=== PATIENT | male | born 1995 | race Caucasian/White ===

== ENCOUNTER 2018-04-10 00:44 | Emergency (ER) | payer SELFPAY ==
[2018-04-10 00:46] VITALS: BP 150/101; PULSE 102; RESP 15; TEMP 36.8; O2SAT 99; BMI 40.6
[2018-04-10 01:49] LABS: Absolute Lymphocyte Count 1.53 X10^3/ul (0.83-4.51); Absolute Neutrophil Count 7.3 X10^3/uL (2.0-7.7); Basophil# 0.02 X10^3/uL; Basophil% 0.2 % (0-1); Eosinophil# 0.03 X10^3/uL; Eosinophils% 0.3 % (0-5); Hemoglobin 16.4 g/dl (13.0-16.5); Lymphocyte # 1.53 X10^3/ul (4.0); Lymphocyte % 15.7 % (19-41); Mean Corp Hgb Conc 36.4 g/gl (32-36); Mean Corpuscular Hgb 31.9 pg (27.0-32.0); Mean Corpuscular Volume 87.5 fL (80-94); Mean Platelet Vol. 10.3 fl (6.2-12.0); Monocyte# 0.87 X10^3/uL; Neutrophil # 7.26 X10^3/uL (2.7-7.7); Neutrophil % 74.7 % (47-70); POSITIVE COUNT NO; POSITIVE DIFFERENTIAL NO; POSITIVE MORPHOLOGY NO; Platelet Count 319 K/mm3 (150-450); RBC Distribution Width SD 41.5 fl (35.1-43.9); Red Blood Count 5.14 M/mm3 (4.6-6.2); White Blood Count 9.7 K/mm3 (4.4-11.0)
[2018-04-10 02:01] LABS: Anion Gap 7 (5-15); BUN 7 mg/dL (7-18); BUN/Creat Ratio 8.3 RATIO (10-20); Calcium,Total 8.4 mg/dL (8.5-10.1); Chloride 110 mmol/L (98-107); Creatinine, Serum 0.85 mg/dL (0.70-1.30); EST Glomerular Filtration Rate 121 mL/min (>60); Est Glom Filt Rate - Afr Amer 147 mL/min (>60); Estimated Creatinine Clearance 147.65 ml/min; Glucose 102 mg/dL (74-106); Potassium 3.5 mmol/L (3.5-5.1); Sodium Level 140 mmol/L (136-145)
[2018-04-10 02:13] LABS: Alcohol, Blood (Medical)-Serum < 3.0 mg/dL
--- NOTE | 2018-04-10 02:35 | ED.RN ---
CALLED [facility]. MARKING STITCHER STATED SHE WILL LET [facility] KNOW THAT PT NEEDS TO BE SEEN.
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
[2018-04-10 02:39] LABS: Amphetamine Urine VISTA POSITIVE (<1000 ng/mL); Barbiturate Urine VISTA NEGATIVE (< 200 ng/mL); Benzodiazepine Urine VISTA NEGATIVE (< 200 ng/mL); Cocaine Urine VISTA NEGATIVE (< 300 ng/mL); Ecstacy Urine VISTA NEGATIVE (< 500 ng/mL); Methadone Urine VISTA NEGATIVE (< 300 ng/mL); PCP Urine VISTA NEGATIVE (< 25 ng/mL); THC Urine VISTA POSITIVE (< 50 ng/mL); Vista UDS pH Range 6
--- NOTE | 2018-04-10 02:40 | ED.RN ---
[facility] CALLED. SHE IS ON HER WAY.
--- NOTE | 2018-04-10 03:41 | ED.RN ---
[facility] IS HERE TO SEE PT.
--- NOTE | 2018-04-10 03:58 | EKG12_ITS ---
Test Reason : SUICIDAL Blood Pressure : / mmHG Vent. Rate : 078 BPM Atrial Rate : 078 BPM P-R Int : 148 ms QRS Dur : 098 ms QT Int : 372 ms P-R-T Axes : 052 058 041 degrees QTc Int : 424 ms Normal sinus rhythm with sinus arrhythmia Normal ECG Confirmed by MONIE GUZMAN ([id number]), image editor ES ADKINS ([id number]) on 04/14/2018 10:12:37 AM Referred By: Confirmed By:MONIE GUZMAN
[2018-04-10 04:05] LABS: Bacteria 0 SEEN /hpf (None Seen); Mucous, Urine 0 SEEN /hpf (<or=2+); Red Blood Cells-Urine 0 SEEN /hpf (0-5); Squamous Epithelial Cells - UA 0 SEEN /hpf (0-5); White Blood Cells 0 SEEN /hpf (0-5)
[2018-04-10 04:06] LABS: Color, Urine Yellow (Yellow); Glucose, Dipstick Normal (Normal); Ketone-Dipstick Negative (Negative); Leukocyte Esterase-Dipstick Negative /ul (Negative); Nitrite-Dipstick Negative (Negative); Occult Blood-Urine Negative /ul (Negative); Protein-Dipstick Negative (Negative); Urine Bilirubin Dipstick Negative (Negative); Urine Clarity Clear (Clear); Urine Urobilinogen Normal (Normal)
[2018-04-10 04:15] VITALS: BP 144/84; PULSE 78; RESP 14; O2SAT 97
[2018-04-10 04:23] LABS: AST(SGOT) 12 U/L (15-37); Alanine Aminotransfer ALT/SGPT 23 U/L (16-61); Albumin, Serum 3.5 g/dL (3.2-5.0); Alkaline Phosphatase 92 U/L (45-117); Bilirubin, Direct 0.11 mg/dL (0.00-0.30); Globulin 3.5 g/dL (2.2-4.2)
[2018-04-10 06:15] VITALS: BP 129/59; PULSE 87; RESP 16; O2SAT 99
--- NOTE | 2018-04-10 07:42 | NURSING ---
[facility] CALLED FORM THE [facility] AND SAID [facility] IS REVIEWING THE PATIENTS CASE RIGHT NOW. THEY WILL LET US KNOW IF HE IS ACCEPTED.
[2018-04-10 08:02] VITALS: BP 129/78; PULSE 84; RESP 16; O2SAT 100
--- NOTE | 2018-04-10 08:40 | ED.RN ---
Father of pt expressed concern of son's pending admission to [facility] and asked if that situation could be changed. I spoke with father in room with the patient. The patient shared the events leading to his admission and pink slip. I explained to the father the benefits to following with mental health care while acknowledging his concern of the pt's future. Father asked if he could get this changed by talking with the dr and/or crisis. I explained that this is the best course of action based on the events and the father verbalizes understanding.
[2018-04-10 09:13] VITALS: BP 150/72; PULSE 81; RESP 18; O2SAT 98
[2018-04-10 10:09] VITALS: BP 134/78; PULSE 79; RESP 20; O2SAT 100
== END 2018-04-10 11:15 ==
PROVIDERS: Emergency Provider Emergency Medicine
DX: F32.9 Major depressive disorder, single episode, unspecified (principal); R45.851 Suicidal ideations; S50.812A Abrasion of left forearm, initial encounter; W45.8XXA Other foreign body or object entering through skin, initial encounter; Y93.9 Activity, unspecified; Y92.9 Unspecified place or not applicable; Y99.9 Unspecified external cause status; Z72.0 Tobacco use
CPT/HCPCS: 80048; 80076; 80307; 80320; 81001; 85025; 93005; 99284; G0480

== ENCOUNTER 2020-11-22 07:14 | Emergency (ER) | payer MEDICAID, SELFPAY ==
[2020-11-22 07:16] VITALS: BP 172/90; PULSE 112; RESP 22; TEMP 35.6; O2SAT 100; BMI 31.8
--- NOTE | 2020-11-22 07:26 | RAD_ITS ---
STUDY: X-RAY - RIGHT FOOT CLINICAL: Right foot foreign body. TECHNIQUE: 2 view(s) of the foot. COMPARISON: None. FINDINGS: Normal talus, calcaneus, and tarsal bones. Normal visualized subtalar, talonavicular, calcaneocuboid, tarsal and tarsometatarsal articulations. Normal metatarsi. Normal metatarsophalangeal joint of the great toe. Normal tibial and fibular sesamoid bones. Normal interphalangeal joint of the great toe. Normal phalanges of the great toe. Normal second through fifth metatarsophalangeal joints. Normal interphalangeal joints and phalanges of the lesser toes. There is a screw in the plantar aspect of the foot at the level of the proximal metatarsals. There is a very small superficial metallic fragment at the plantar lateral aspect of the fifth metatarsophalangeal joint. RAD/Foot 2 Views IMPRESSION: Screw in the plantar aspect of the foot. Very small superficial metallic fragment at the plantar lateral aspect of the fifth metatarsophalangeal joint. Electronically Signed: Hernan Lara MD at 7:57 EST Tel , Service support ,
--- NOTE | 2020-11-22 07:32 | ED.VIS.GEN ---
History of Present Illness Chief Complaint: Lower Extremity Injury Informant: Patient Onset: Today Current Severity: Moderate Maximum Severity: Moderate Narrative: She presents with a screw embedded into the bottom of his right foot. Patient states that he was repairing a door earlier this morning. He had screws laying on the steps and when he came down the steps stepped on them. One screw went through the bottom of his slipper and into his foot. He is unsure of his last tetanus update. - Past Medical History (1) Asthma Status: Chronic Past Medical History - Allergies and Home Meds Allergies/Adverse Reactions: Allergies ceftriaxone sodium [From Rocephin] Allergy (Verified 11/22/20 07:16) Rash Primary Care Physician: Care Physician,No Primary [Primary Care Provider] - Smoking Status: Current some day smoker Review of Systems General: Denies: Chills, Fever Eyes: Denies: Visual changes - bilaterally ENT: Denies: Bilateral ear pain Cardiovascular: Denies: Chest pain Respiratory: Denies: Dyspnea, Cough Gastrointestinal: Denies: Abdominal pain Musculoskeletal: Reports: Extremity Pain Skin: Reports: Wounds Neurological: Denies: Weakness Hematologic: Denies: Easy bruising, Easy bleeding Allergy: Denies: Uticaria Physical Exam Vital Signs/Narrative: Vital Signs Temp Pulse Resp BP Pulse Ox 11/22/20 07:16 96.1 F L 112 H 22 H 172/90 H 100 Inital Vital Signs reviewed: Yes General: Well nourished, Well developed Head: Normocephalic ENT: Moist mucous membranes Neck: Supple Cardiovascular: Regular rate, Regular rhythm Respiratory: No distress, CTA bilaterally Abdomen: Soft, Nontender Extremities: - - Screw through the plantar surface of the patient's right foot. Slipper is still in place and cut away at the side for visualization. Neurological: Alert, Oriented x3 Psychological: - - Anxious Diagnostic/Tx/Re-eval Impressions Foot X-Ray 11/22/20 07:26 IMPRESSION: Screw in the plantar aspect of the foot. Very small superficial metallic fragment at the plantar lateral aspect of the fifth metatarsophalangeal joint. Electronically Signed: Hernan Lara MD at 7:57 EST Tel , Service support , 11/22/20 07:26 Foot 2 Views [RAD] Stat - Medical Decision Making Left foot x-ray reviewed by myself does reveal screw into the soft tissues of the plantar left foot approximately 1 cm. 3 cc 1% lidocaine are infused locally around the base of the screw and the plantar surface of the foot. After approximately 5 minutes this was able to be removed. Foot was washed and cleansed. Patient will be placed on Cipro as well as Royalton for pain control. ED Disposition - Plan for ED Patient: Disposition: Home or Assisted Living Diagnosis: Foreign body in foot, right Instructions: ED Foreign Body, Soft Tissue (Removed) Prescriptions: Ciprofloxacin [Cipro] 500 mg PO BID #14 tab Transmission Status: Pending to [id number] Hydrocodone Bitart/Apap 5-325 [Royalton 5MG-325MG] 1 tablet PO Q6H PRN PRN 3 Days #10 tablet PRN Reason: Pain Transmission Status: Sent to [id number] Referrals: Zoey Anderson DPM [STAFF PHYSICIAN] - 1 Week if not improving
[2020-11-22] MEDS: Diphth,Pertuss(Acell),Tet Vac 0.5 ML Vial IM (07:48)
[2020-11-22 08:29] VITALS: BP 147/87; PULSE 91; RESP 16; O2SAT 100
[2020-11-22] MEDS: Ciprofloxacin 500 MG Tablet PO (08:29)
[2020-11-22] MEDS: HYDROcodone Bitartrate/Apap 5/325 Tablet PO (08:29)
[2020-11-22] MEDS: Lidocaine 1% (20 ml mdv) 20 ML Vial INFILT (08:30)
== END 2020-11-22 08:33 | disposition home or self-care (01) ==
PROVIDERS: Emergency Provider Emergency Medicine
DX: S91.341A Puncture wound with foreign body, right foot, initial encounter (principal); W45.8XXA Other foreign body or object entering through skin, initial encounter; W22.8XXA Striking against or struck by other objects, initial encounter; Y93.89 Activity, other specified; Y92.9 Unspecified place or not applicable; Y99.9 Unspecified external cause status; Z23 Encounter for immunization; J45.909 Unspecified asthma, uncomplicated; F17.200 Nicotine dependence, unspecified, uncomplicated; Z88.1 Allergy status to other antibiotic agents
CPT/HCPCS: 73620; 90471; 90715; 99284

== ENCOUNTER 2025-04-01 15:44 | Emergency (ER) | payer MEDICAID, SELFPAY ==
[2025-04-01 15:44] VITALS: BP 144/79; PULSE 109; RESP 16; TEMP 36.7; O2SAT 97; BMI 40.4
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
[2025-04-01 16:49] LABS: Absolute Neutrophil Count 4.3 X10^3/uL (2.0-7.7); Basophil# 0.06 X10^3/uL; Basophil% 0.8 % (0-1); Eosinophil# 0.22 X10^3/uL; Hematocrit 43.9 % (40-54); Hemoglobin 15.5 g/dL (13.0-16.5); Lymphocyte % 29.9 % (19-41); Mean Corp Hgb Conc 35.3 g/dL (32-36); Mean Corpuscular Hgb 31.4 pg (27.0-32.0); Mean Corpuscular Volume 88.9 fL (80-94); Mean Platelet Vol. 10.2 fl (6.2-12.0); Monocyte# 0.55 X10^3/uL; Monocyte% 7.5 % (0-10); NRBC Flagged by Analyzer 0 % (0-5); Neutrophil # 4.32 X10^3/uL (2.7-7.7); Neutrophil % 58.7 % (47-70); Platelet Count 283 K/mm3 (150-450); RBC Distribution Width CV 13.8 % (11.6-14.6); RBC Distribution Width SD 44.6 fl (35.1-43.9); Red Blood Count 4.94 M/mm3 (4.6-6.2); White Blood Count 7.4 K/mm3 (4.4-11.0)
[2025-04-01 17:05] LABS: Alcohol, Blood (Medical)-Serum < 10.1 mg/dL (<=10.0)
[2025-04-01 17:09] LABS: ALB/GLOB Ratio 1.1 RATIO (0.9-2.4); AST(SGOT) 125 U/L (<=37); Alanine Aminotransfer ALT/SGPT 197 U/L (<=46); Albumin, Serum 3.6 g/dL (3.5-5.0); Alkaline Phosphatase 98 U/L (40-129); Anion Gap 10 (5-15); BUN 10 mg/dL (4-19); Carbon Dioxide 20.9 mmol/L (21.0-32.0); Chloride 109 mmol/L (98-108); Creatinine, Serum 0.76 mg/dL (0.70-1.20); EST Glomerular Filtration Rate 126 (>60); Globulin 3.5 g/dL (2.2-4.2); Glucose 139 mg/dL (70-99); Potassium 3.8 mmol/L (3.3-5.1); Protein, Total 7.1 g/dL (5.9-8.4); Sodium Level 140 mmol/L (133-145); Total Bilirubin 0.52 mg/dL (0.00-1.30)
--- NOTE | 2025-04-01 17:27 | ED.RN ---
Pts S.O. was warned that they couldn't be arguing or she would have to leave. Pt was also told he would have to stop arguing on the phone or the phone would go away. Pt threatening to leave. Security and HRO at bedside.
--- NOTE | 2025-04-01 17:32 | PCA ---
FAXED EVERYTHING OVER TO [facility] @ 1732 AND CALLED THEM RIGHT BEFORE THAT
[2025-04-01 17:50] LABS: Amphetamine Urine PRESUMPTIVE POSITIVE (<1000 ng/mL); Barbiturate Urine NEGATIVE (< 200 ng/mL); Benzodiazepine Urine NEGATIVE (< 200 ng/mL); Buprenorphine Urine NEGATIVE (< 200 ng/mL); Cocaine Urine NEGATIVE (< 300 ng/mL); Fentanyl, Urine NEGATIVE; Methadone Urine NEGATIVE (< 300 ng/mL); Opiates Urine NEGATIVE (< 300 ng/mL); Oxycodone, Urine NEGATIVE (< 100 ng/mL); PCP Urine NEGATIVE (< 25 ng/mL); THC Urine PRESUMPTIVE POSITIVE (< 50 ng/mL)
--- NOTE | 2025-04-01 18:45 | ED.RN ---
pt has remained calm and cooperative. was given his cellphone. given rules od cooperation and keeping calm to have phone privledges. coopartive and calm at this time
[2025-04-01] MEDS: Ziprasidone IM 20 MG/ML VIAL IM (19:00)
--- NOTE | 2025-04-01 19:05 | ED.RN ---
pt esculating carlyiel talking to his brother on phone. pt is upset that he cant go home. cursing swearing getting aggitated adn violent attempt to deesculate with verbal cues. pt continues to esculate. refusing to surrender phone to staff or calm down. pt aggressived and screaming inappropriate words and threats. at bedside, restraints and meds ordered. and applied.
--- NOTE | 2025-04-01 19:05 | ED.RN ---
PATIENT IS ACTIVELY RESTRAINED BUT IS YELLING, THREATENING STAFF AND ATTEMPTING TO SWING AT STAFF. UNABLE TO OBTAIN VITAL SIGNS FOR RESTRAINT DOCUMENTATION DUE TO AGGRESSIVE BEHAVIOR. SAFETY MAINTAINED, SITTER AT BEDSIDE, MD AWARE. NO NEW ORDERS AT THIS TIME.
--- NOTE | 2025-04-01 23:24 | ED.RN ---
This RN spoke to Tyler at [facility] to confirm the protocol for chemical and physical restraints. Tyler informed this RN that the patient has to be out of physical restraints for at least 4 hours and no chemical restraints for at least 1 hour prior to arrival at [facility]. notified.
[2025-04-02 01:30] VITALS: BP 125/95; PULSE 60; RESP 18; TEMP 36.8; O2SAT 95
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
== END 2025-04-02 09:15 ==
LOC: ED 16:22
PROVIDERS: Emergency Provider Surgery; Visit Provider Surgery
DX: R45.851 Suicidal ideations (principal); F20.9 Schizophrenia, unspecified; F15.10 Other stimulant abuse, uncomplicated; F12.90 Cannabis use, unspecified, uncomplicated; R74.01 Elevation of levels of liver transaminase levels; F17.210 Nicotine dependence, cigarettes, uncomplicated
CPT/HCPCS: 80053; 80307; 82077; 85025; 93005; 99284

== ENCOUNTER 2025-04-13 02:10 | Emergency (ER) | payer MEDICAID, SELFPAY ==
[2025-04-13 02:11] VITALS: BP 114/111; PULSE 107; RESP 22; TEMP 36.8; O2SAT 99; BMI 40.8
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
--- NOTE | 2025-04-13 02:52 | CT_ITS ---
PROCEDURE: BRAIN/HEAD WITHOUT CONTRAST 04/13/2025 REASON FOR EXAM: TRAUMA TECHNIQUE: BRAIN/HEAD WITHOUT CONTRAST Coronal and Sagittal reconstruction series were provided. One or more dose reduction techniques were used (e.g., Automated exposure control, adjustment of the mA and/or kV according to patient size, use of iterative reconstruction technique. RADIATION DOSE SUMMARY: CTDlvol: 44.99 mGy DLP: 880 mGycm COMPARISON: None. FINDINGS: Normal size of the ventricles and extra-axial spaces for the patient's age. Normal white matter tracts of the supratentorial brain. Normal basal ganglia and thalami. Normal brainstem. Normal cerebellum. There is no demonstrated extra-axial, intraparenchymal, or intraventricular hemorrhage. There are no findings of an acute ischemic infarction. Normal calvarium. There is no demonstrated fracture. Normal soft tissue structures. Normal visualized paranasal sinuses. CT/Brain/Head without Contrast IMPRESSION: No CT evidence of an acute brain abnormality. Reading Location: [id number]
--- OUTSIDE RECORDS SUMMARY | 2025-04-13 02:57 | XMS RPT_ITS | CCD ---
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 VAGINALIS NAAT - UA DIP, URINE (POC) - DOXYCYCLINE MONOHYDRATE 100 MG CAPSULE - AZITHROMYCIN 500 MG TABLET - METRONIDAZOLE 500 MG TABLET Flori Velez APRN.SHADE [facility]City [facility] Emergency department Note * Angeline Ding APRN-SHADE - 01/23/2024 2:05 PM EDT Chief Complaint Patient presents with Ankle Pain Pt comes in for right ankle pain. Pt states that he was at work wrapping a pallet and that his footgot caught on the pallet causing his foot and ankle to go one way and his knee to go the other. 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 Pt works at [employer] Patient History No past medical history on file. No past surgical history on file. No family history on file. Social History Social History Narrative Not on file Allergies Allergen Reactions Rocephin [Ceftriaxone] Unknown PMH: Reviewed PSH: Reviewed Social History: Reviewed. Allergies reviewed. HPI: Marlin Ojeda is a 28 y.o. male who presents to the ED today unaccompanied with complaints of right ankle pain. He was at work, wrapping up a pallet, foot got caught in the pallet causing him to fall, twisting his ankle. Pain from the lateral ankle up to the lateral knee. No prior injury. Nothing taken for pain. Iced on arrival. No other injury. PHYSICAL EXAM: GENERAL: Vitals noted, no distress. Alert and oriented x 3. Non-toxic. HEAD: Normocephalic, atraumatic. NECK: Supple. No midline or paraspinal tenderness through full range of motion. CARDIAC: Regular rate, rhythm. No murmurs or rubs. RESPIRATORY: Lungs clear and equal bilaterally. No respiratory distress. MUSCULOSKELETAL & SKIN: Warm, dry, and intact. No rash/lesions. Localized right lower extremityperipheral edema noted at the ankle. Calf soft and nontender. Mild tenderness palpation of the proximal tibia. Full intact range of motion of the knee and the ankle. Distal cap refills less than 3 seconds. Pedal pulse 2+ and bounding. NEURO: No focal neurologic deficits, acting appropriately. Labs Reviewed - No data to display XR ankle right 3+ views Final Result No evidence for acute injury Signed by Dennis Narayanan MD XR tibia fibula right 2 views Final Result No evidence for acute injury Signed by Dennis Narayanan MD Medical Decision Making ED COURSE: This patient was seen and examined by myself independently. X-rays of the right tib-fib and ankle are noted above, interpreted radiology, showing no evidence for acute injury. Placed in Aircast and given crutches. Advise no weightbearing for 24 hours, then weightbearing as tolerated witha Aircast in place until he is cleared by follow-up at the occupational health. Return to work on 01/25/24 wearing the Aircast. Rest, ice, elevate. He declined pain medication here in the ED. Discharged home in stable condition with computer instructions given. DIAGNOSTIC IMPRESSION: #1 right ankle sprain BELLA Santana 01/23/24 1555 documented in this [facility] Work Phone: 1(173) 546-222104-04-2024 Physician Emergency department Note* BELLA Santana - 01/23/2024 2:05 PM EDT Chief Complaint Patient presents with Ankle Pain Pt comes in for right ankle pain. Pt states that he was at work wrapping a pallet and that his footgot caught on the pallet causing his foot and ankle to go one way and his knee to go the other. 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 Pt works at [employer] Patient History No past medical history on file. No past surgical history on file. No family history on file. Social History Social History Narrative Not on file Allergies Allergen Reactions Rocephin [Ceftriaxone] Unknown PMH: Reviewed PSH: Reviewed Social History: Reviewed. Allergies reviewed. HPI: Marlin Ojeda is a 28 y.o. male who presents to the ED today unaccompanied with complaints of right ankle pain. He was at work, wrapping up a pallet, foot got caught in the pallet causing him to fall, twisting his ankle. Pain from the lateral ankle up to the lateral knee. No prior injury. Nothing taken for pain. Iced on arrival. No other injury. PHYSICAL EXAM: GENERAL: Vitals noted, no distress. Alert and oriented x 3. Non-toxic. HEAD: Normocephalic, atraumatic. NECK: Supple. No midline or paraspinal tenderness through full range of motion. CARDIAC: Regular rate, rhythm. No murmurs or rubs. RESPIRATORY: Lungs clear and equal bilaterally. No respiratory distress. MUSCULOSKELETAL & SKIN: Warm, dry, and intact. No rash/lesions. Localized right lower extremityperipheral edema noted at the ankle. Calf soft and nontender. Mild tenderness palpation of the proximal tibia. Full intact range of motion of the knee and the ankle. Distal cap refills less than 3 seconds. Pedal pulse 2+ and bounding. NEURO: No focal neurologic deficits, acting appropriately. Labs Reviewed - No data to display XR ankle right 3+ views Final Result No evidence for acute injury Signed by Dennis Narayanan MD XR tibia fibula right 2 views Final Result No evidence for acute injury Signed by Dennis Narayanan MD Medical Decision Making ED COURSE: This patient was seen and examined by myself independently. X-rays of the right tib-fib and ankle are noted above, interpreted radiology, showing no evidence for acute injury. Placed in Aircast and given crutches. Advise no weightbearing for 24 hours, then weightbearing as tolerated witha Aircast in place until he is cleared by follow-up at the occupational health. Return to work on 01/25/24 wearing the Aircast. Rest, ice, elevate. He declined pain medication here in the ED. Discharged home in stable condition with computer instructions given. DIAGNOSTIC IMPRESSION: #1 right ankle sprain BELLA Santana 01/23/24 4358 [facility] Work Phone: Evaluation note* Diagnosis Sprain of right ankle, initial encounter- Primary documented in this encounter [facility] Work Phone: Evaluation note* Diagnosis STD exposure- Primary [facility] Diagnosis Closed fracture of phalanx of right fifth toe, initial encounter- Primary Laceration of fifth toe documented in this encounter [facility] Work Phone: Evaluation note* Diagnosis Methamphetamine abuse (HCC)- Primary Nondependent amphetamine or related acting sympathomimetic abuse, unspecified documented in this encounter [facility] noteNo assessment information availableWMartins Ferry Hospital Work Phone: Hospital Discharge instructions* Attachments The following attachments cannot be sent through Care Everywhere. * Ankle Sprain ED (Norwegian) [facility] Work Phone: Reason for referral (narrative)No reason for referral information availableWMartins Ferry Hospital Work Phone: Summary Purpose Family History No Family History Records FoundNo Family History Records FoundNo Family History Records FoundNo Family History Records FoundNo Family History Records FoundNo Family History Records FoundNo Family History Records Found Advance Directives No Advanced Directives Records Found Advance Directive Response Recorded Date/ Time Do you have a Healthcare Power of Electrician Station Assistant? No April 01, 2025 3:52pm Chief Complaint and Reason for Visit Chief Complaint Admit Date si April 01, 2025 3:44 pm Additional Source Comments (unrecognized sect ion and content) No Status Records FoundNo Status Records FoundNo Status Records FoundNo Status Records FoundNo Status Records FoundNo Status Records FoundNo Status Records Found INFORMATION SOURCE (unrecogn ized section and content) DATE CREATED AUTHOR 06/30/2020 [facility] DATE CREATED AUTHOR AUTHOR'S ORGANIZ ATION 02/13/2021 [facility] DATE CREATED AUTHOR AUTHOR'S ORGANIZ ATION 07/26/2021 [facility] DATE CREATED AUTHOR AUTHOR'S ORGANIZ ATION 12/08/2024 [facility] DATE CREATED AUTHOR AUTHOR'S ORGANIZ ATION 02/12/2025 [facility] DATE CREATED AUTHOR AUTHOR'S ORGANIZ ATION 04/10/2025 [facility] DATE CREATED AUTHOR AUTHOR'S ORGANIZ ATION 04/11/2025 [facility] Reason for Visit (unrecogniz ed section and content) Reason Comments Ankle Pain Pt comes in for righ t ankle pain. Pt states that he was at work wrapping a pallet and that his foot got caught on the pallet causing his foot and ankle to go one way and his knee to go the other. 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 Pt works at [employer] Reason Comments STD herpes, trich and ch lamydia exposure Reason Onset Date Comments Results 12/07/2024 Reason Comments Toe Injury Pt states he kicked a wall a couple days ago. [facility] wanted pt to be medically cleared Reason Comments Drug / Alcohol Assessment Pt requesting detox from fentanyl. Last use yesterday. Care Teams (unrecognized sec tion and content) Nonprofit Financial Controller Relationship Specialty Start Date End Date Generic Provider, No Assigned PcpMD [facility]ONE [facility] [place] [address] PCP - General Single Stroke Preformer 01/23/24 Nonprofit Financial Controller Relationship Specialty Start Date End Date Generic Provider, No [place] [address] PCP - General Single Stroke Preformer 01/23/24 Team Status: Active Member Role Status Dates No Primary Care Physician Primary Care Provider Active Team Status: Inactive Member Role Status Dates No Primary Care Physician Primary Care Provider Active Start: April 01, 2025 End: April 02, 2025 Dr. Eddy Cutler , Emergency Provider Activ e Start: April 01, 2025 End: April 02, 2025 Source Comments (unrecognize d section and content) In the event this informatio n is protected by the Federal Confidentiality of Alcohol and Drug Abuse Patient Records regulations: The Federal rules restrict any use of the information to criminally investigate or prosecute any alcohol or drug abuse patient.[facility] HospitalIn the event this information is protected by the Federal Confidentiality of Alcohol and Drug Abuse Patient Records regulations: The Federal rules restrict any use of the information to criminally investigate or prosecute any alcohol or drug abuse patient.[facility] Scheduled Active and Recently Administ ered Medications (unrecognized section and content) Medication Order 01/10/2025 01/11/2025 01/12/2025 [id number] (Neosporin) ointment foil packet (COMPLETED) Topical, Once, On Sat01/12/25 at 191, For 1 dose 1917 (Given - Provid er: Polina Pritchard RN - Comment: only one application - one packet) Goals (unrecognized section and content) Goals may be documented in a n alternate section FOR RECORDS PERTAINING TO PATIENTS WHO ARE OR HAVE BEEN ENROLLED IN A CHEMICAL DEPENDENCY/SUBSTANCEABUSE PROGRAM, SOME INFORMATION MAY BE OMITTED. This clinical summary was aggregated from multiple sources. Caution should be exercised in using it in the provision of clinical care. This summary normalizes information from multiple sources, and as a consequence, information in this document may materially change the coding, format and clinical context of patient data. In addition, data may be omitted in some cases. CLINICAL DECISIONS SHOULD BE BASED ON THE PRIMARY CLINICAL RECORDS. [facility] [employer] [facility]. provides no warranty or guarantee of the accuracy or completeness of information in this document.
[2025-04-13 03:11] VITALS: BP 127/74; PULSE 95; RESP 14; O2SAT 99
[2025-04-13 04:00] VITALS: BP 114/96; PULSE 90; RESP 13; O2SAT 100
[2025-04-13 05:00] VITALS: BP 135/80; PULSE 86; RESP 20; O2SAT 99
[2025-04-13 05:18] LABS: Absolute Lymphocyte Count 3.96 X10^3/uL (0.83-4.51); Absolute Neutrophil Count 6.4 X10^3/uL (2.0-7.7); Basophil# 0.09 X10^3/uL; Basophil% 0.8 % (0-1); Eosinophils% 0.8 % (0-5); Hematocrit 41.5 % (40-54); Hemoglobin 14.8 g/dL (13.0-16.5); Lymphocyte # 3.96 X10^3/ul (0.83-4.51); Lymphocyte % 33.2 % (19-41); Mean Corp Hgb Conc 35.7 g/dL (32-36); Mean Corpuscular Hgb 31.4 pg (27.0-32.0); Mean Corpuscular Volume 88.1 fL (80-94); Mean Platelet Vol. 10.9 fl (6.2-12.0); Monocyte# 1.35 X10^3/uL; Monocyte% 11.3 % (0-10); NRBC Flagged by Analyzer 0 % (0-5); Neutrophil # 6.41 X10^3/uL (2.7-7.7); Neutrophil % 53.6 % (47-70); Platelet Count 252 K/mm3 (150-450); RBC Distribution Width SD 42.2 fl (35.1-43.9); Red Blood Count 4.71 M/mm3 (4.6-6.2); White Blood Count 11.9 K/mm3 (4.4-11.0)
[2025-04-13 05:38] LABS: Acetaminophen (Tylenol) Level < 5.0 ug/mL (8.0-19.0); Salicylate 8.6 mg/dL (2.8-20.0)
[2025-04-13 05:39] LABS: ALB/GLOB Ratio 1.2 RATIO (0.9-2.4); AST(SGOT) 180 U/L (<=37); Alanine Aminotransfer ALT/SGPT 315 U/L (<=46); Albumin, Serum 3.8 g/dL (3.5-5.0); Alkaline Phosphatase 73 U/L (40-129); Anion Gap 14 (5-15); BUN 13 mg/dL (4-19); BUN/Creat Ratio 14.5 RATIO (10-20); Calcium,Total 8.7 mg/dL (7.6-11.0); Carbon Dioxide 19.1 mmol/L (21.0-32.0); Chloride 105 mmol/L (98-108); Creatinine, Serum 0.88 mg/dL (0.70-1.20); EST Glomerular Filtration Rate 121 (>60); Estimated Creatinine Clearance 175.39 ml/min (50-250); Globulin 3.3 g/dL (2.2-4.2); Glucose 87 mg/dL (70-99); Potassium 3.7 mmol/L (3.3-5.1); Protein, Total 7.1 g/dL (5.9-8.4); Sodium Level 139 mmol/L (133-145); Total Bilirubin 0.86 mg/dL (0.00-1.30)
[2025-04-13 06:00] VITALS: BP 143/71; PULSE 78; RESP 22; O2SAT 97
[2025-04-13 06:24] VITALS: BP 139/77; PULSE 77; RESP 18; TEMP 36.6; O2SAT 97
== END 2025-04-13 06:25 | disposition home or self-care (01) ==
PROVIDERS: Emergency Provider Emergency Medicine; Visit Provider Emergency Medicine
DX: T43.611A Poisoning by caffeine, accidental (unintentional), initial encounter (principal); R10.13 Epigastric pain; R11.2 Nausea with vomiting, unspecified; F41.9 Anxiety disorder, unspecified; F17.210 Nicotine dependence, cigarettes, uncomplicated; F17.290 Nicotine dependence, other tobacco product, uncomplicated
CPT/HCPCS: 70450; 80053; 80143; 80179; 85025; 99285; A4216

== ENCOUNTER 2025-07-16 11:06 | Emergency (ER) | payer MEDICAID, SELFPAY ==
[2025-07-16 11:06] VITALS: BP 156/92; PULSE 103; RESP 18; TEMP 36.4; O2SAT 100; BMI 42.1
--- OUTSIDE RECORDS SUMMARY | 2025-07-16 19:27 | XMS RPT_ITS | CCD ---
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 ered By: Eddy Cutler on 04-01-2025 Neutrophils (Bld) [#/Vol] 4.3 10*3/uL 2.0-7.7 [facility] Alcohol, Blood (Medical)-Ser umon 04-01-2025 SERUM ETOH < 10.1 Normal <=10.0 [facility] Comment on above: Result Comment: This test is for medical purposes only. The legal definition of intoxication varies according to local law. Performed By: #### L 100.0100, L505.5000, L501.9100 #### [facility] [place], [address] Amphetamine detection with 1 000 ng/mL as cutoffOrdered By: Eddy Cutler on 04-01-2025 Amphetamines Screen method >1000 ng/mL Ql (U) Positive <1000 ng/mL [facility] Comment on above: If confirmation test ing is needed, a separate order will be required to send out testing to the reference laboratory. Amphetamines Screen method >1000 ng/mL Ql (U) Negative < 200 ng/mL [facility] Anion gap in Serum or Plasma Ordered By: Eddy Cutler on 04-01-2025 Anion gap [Moles/Vol] 10 mmol/L 5-15 [facility] Automated lymphocyte count a s percentage of total leukocytesOrdered By: Eddy Cutler on 04-01-2025 Lymphocytes/100 WBC Auto (Unsp spec) 29.9 % 19-41 [facility] BUN/creatinine ratioOrdered By: Eddy Masseyt on 04-01-2025 Urea nitrogen/Creatinine [Mass ratio] 13.0 mg/mg 10-20 [facility] Basophil percentageOrdered B y: Eddy Masseyt on 04-01-2025 Basophils/100 WBC (Bld) 0.8 % 0-1 [facility] Bilirubin, totalOrdered By: Eddy Masseyt on 04-01-2025 Bilirubin [Mass/Vol] 0.52 mg/dL 0.00-1.30 [facility] CBC W/Diff, Automatedon 03-21-2024 Absolute Lymph 2.20 X10 3/uL Normal 0.83-4.51 [facility] Comment on above: Performed By: #### L 100.0100, L505.5000, L501.9100 #### [facility] [address] [place], [address] Absolute Neut 4.3 X10 3/uL Normal 2.0-7.7 [facility] Comment on above: Performed By: #### L 100.0100, L505.5000, L501.9100 #### [facility] [address] [place], [address] Basophils/100 WBC (Bld) 0.8 % Normal 0-1 [facility] Comment on above: Performed By: #### L 100.0100, L505.5000, L501.9100 #### [facility] [address] [place], [address] Eosinophils/100 WBC (Bld) 3.0 % Normal 0-5 [facility] Comment on above: Performed By: #### L 100.0100, L505.5000, L501.9100 #### [facility] [address] [place], [address] Erythrocyte distribution width (RBC) [Ratio] 13.8 % Normal 11.6-14.6 [facility] Comment on above: Performed By: #### L 100.0100, L505.5000, L501.9100 #### [facility] [address] [place], [address] Hematocrit (Bld) [Volume fraction] 43.9 % Normal 40-54 [facility] Comment on above: Performed By: #### L 100.0100, L505.5000, L501.9100 #### [facility] [address] [place], [address] Hemoglobin (Bld) [Mass/Vol] 15.5 g/dL Normal 13.0-16.5 [facility] Comment on above: Performed By: #### L 100.0100, L505.5000, L501.9100 #### [facility] [address] [place], [address] IG% 0.100 Normal 0.0-0.9 [facility] Comment on above: Result Comment: IG% - Immature Granulocytes (promyelocytes, myelocytes and metamyelocytes) > 1% indicates that a LEFT SHIFT is Present. Performed By: #### L 100.0100, L505.5000, L501.9100 #### [facility] [address] [place], [address] Lymphocytes/100 WBC (Bld) 29.9 % Normal 19-41 [facility] Comment on above: Performed By: #### L 100.0100, L505.5000, L501.9100 #### [facility] [address] [place], [address] MCH (RBC) [Entitic mass] 31.4 pg Normal 27.0-32.0 [facility] Comment on above: Performed By: #### L 100.0100, L505.5000, L501.9100 #### [facility] [address] [place], [address] MCHC (RBC) [Mass/Vol] 35.3 g/dL Normal 32-36 [facility] Comment on above: Performed By: #### L 100.0100, L505.5000, L501.9100 #### [facility] [address] [place], [address] MCV (RBC) [Entitic vol] 88.9 fL Normal 80-94 [facility] Comment on above: Performed By: #### L 100.0100, L505.5000, L501.9100 #### [facility] [address] [place], [address] Monocytes/100 WBC (Bld) 7.5 % Normal 0-10 [facility] Comment on above: Performed By: #### L 100.0100, L505.5000, L501.9100 #### [facility] [address] [place], [address] Neutrophils/100 WBC (Bld) 58.7 % Normal 47-70 [facility] Comment on above: Performed By: #### L 100.0100, L505.5000, L501.9100 #### [facility] [address] [place], [address] Nucleated RBC (Bld) [#/Vol] 0 10*3/uL Normal 0-5 [facility] Comment on above: Performed By: #### L 100.0100, L505.5000, L501.9100 #### [facility] [address] [place], [address] Platelet mean volume (Bld) [Entitic vol] 10.2 fL Normal 6.2-12.0 [facility] Comment on above: Performed By: #### L 100.0100, L505.5000, L501.9100 #### [facility] [address] [place], [address] Platelets (Bld) [#/Vol] 283 10*3/uL Normal 150-450 [facility] Comment on above: Performed By: #### L 100.0100, L505.5000, L501.9100 #### [facility] [address] [place], [address] RBC (Bld) [#/Vol] 4.94 10*6/uL Normal 4.6-6.2 [facility] Comment on above: Performed By: #### L 100.0100, L505.5000, L501.9100 #### [facility] [address] [place], [address] RDW SD 44.6 fl High 35.1-43.9 [facility] Comment on above: Performed By: #### L 100.0100, L505.5000, L501.9100 #### [facility] [address] [place], [address] WBC (Bld) [#/Vol] 7.4 10*3/uL Normal 4.4-11.0 [facility] Comment on above: Performed By: #### L 100.0100, L505.5000, L501.9100 #### [facility] [address] [place], [address] Carbon dioxide, total [Moles /volume] in Central venous bloodOrdered By: Eddy Cutler on 04-01-2025 CO2 [Moles/Vol] 20.9 mmol/L Low 21.0-32.0 [facility] Chloride assayOrdered By: Axel Cutler on 04-01-2025 Chloride [Moles/Vol] 109 mmol/L High 98-108 [facility] Comprehensive Metabolic Prof ilon 04-01-2025 Albumin [Mass/Vol] 3.6 g/dL Normal 3.5-5.0 [facility] Comment on above: Performed By: #### L 500.4050 #### [facility] [address] [place], [address] Albumin/Globulin [Mass ratio] 1.1 {ratio} Normal 0.9-2.4 [facility] Comment on above: Performed By: #### L 500.4050 #### [facility] [address] [place], [address] ALK PHOS 98 U/L Normal 40-129 [facility] Comment on above: Performed By: #### L 500.4050 #### [facility] [address] [place], [address] ALT [Catalytic activity/Vol] 197 U/L High <=46 [facility] Comment on above: Performed By: #### L 500.4050 #### [facility] [address] [place], [address] AST [Catalytic activity/Vol] 125 U/L High <=37 [facility] Comment on above: Result Comment: Hemo lysis present, Results??could be affected. ?? Performed By: #### L 500.4050 #### [facility] [address] [place], [address] Bilirubin [Mass/Vol] 0.52 mg/dL Normal 0.00-1.30 [facility] Comment on above: Performed By: #### L 500.4050 #### [facility] [address] [place], [address] BUN/CRE 13.0 RATIO Normal 10-20 [facility] Comment on above: Performed By: #### L 500.4050 #### [facility] [address] [place], [address] Calcium [Mass/Vol] 9.0 mg/dL Normal 7.6-11.0 [facility] Comment on above: Performed By: #### L 500.4050 #### [facility] [address] [place], [address] Chloride [Moles/Vol] 109 mmol/L High 98-108 [facility] Comment on above: Performed By: #### L 500.4050 #### [facility] [address] [place], [address] CO2 [Moles/Vol] 20.9 mmol/L Low 21.0-32.0 [facility] Comment on above: Performed By: #### L 500.4050 #### [facility] [address] [place], [address] Creatinine [Mass/Vol] 0.76 mg/dL Normal 0.70-1.20 [facility] Comment on above: Performed By: #### L 500.4050 #### [facility] [address] [place], [address] ECRCL 202.00 ml/min Normal 50-250 [facility] Comment on above: Performed By: #### L 500.4050 #### [facility] [address] [place], [address] GAP 10 Normal 5-15 [facility] Comment on above: Performed By: #### L 500.4050 #### [facility] [address] [place], [address] GFR/1.73 sq M.predicted among non-blacks MDRD (S/P/Bld) [Vol rate/Area] 126 mL/min/{1.73_m2} Normal >60 [facility] Comment on above: Result Comment: mL/m in/1.73m2 CKD-EPI Creatinine Equation (2020) Performed By: #### L 500.4050 #### [facility] [address] [place], [address] Globulin (S) [Mass/Vol] 3.5 g/dL Normal 2.2-4.2 [facility] Comment on above: Performed By: #### L 500.4050 #### [facility] [address] [place], [address] Glucose [Mass/Vol] 139 mg/dL High 70-99 [facility] Comment on above: Performed By: #### L 500.4050 #### [facility] [address] [place], [address] Potassium [Moles/Vol] 3.8 mmol/L Normal 3.3-5.1 [facility] Comment on above: Result Comment: Hemo lysis present, Results??could be affected. ?? Performed By: #### L 500.4050 #### [facility] [address] [place], [address] Sodium [Moles/Vol] 140 mmol/L Normal 133-145 [facility] Comment on above: Performed By: #### L 500.4050 #### [facility] [address] [place], [address] T PROT 7.1 g/dL Normal 5.9-8.4 [facility] Comment on above: Performed By: #### L 500.4050 #### [facility] [address] [place], [address] Urea nitrogen [Mass/Vol] 10 mg/dL Normal 4-19 [facility] Comment on above: Performed By: #### L 500.4050 #### [facility] [address] [place], [address] Emergency Department Summary on 04-01-2025 Emergency Department Summary [facility] Medical Records Department [address] [place] [address] Emergency Department Summary 04/01/25 MR#: [id number] Acct: [id number] Name: MARLIN OJEDA Rep #: [id number] : 1995 29 From: Eddy Cutler DO [...] psychiatrist. Not on medication. Was admitted to [facility] years ago. Per girlfriend, patient is a [...] Patient was (more content not included)... Normal [facility] Eosinophil percentageOrdered By: Eddy Cutler on 04-01-2025 Eosinophils/100 WBC (Bld) 3.0 % 0-5 [facility] Erythrocyte distribution wid th ratioOrdered By: Eddy Cutler on 04-01-2025 Erythrocyte distribution width (RBC) [Ratio] 13.8 % 11.6-14.6 [facility] Erythrocyte distribution wid th standard deviationOrdered By: Eddy Flores on 04-01-2025 Erythrocyte distribution width (RBC) [Ratio] 44.6 fl High 35.1-43.9 [facility] Glomerular filtration rate ( GFR) estimation/1.73 sq m using serum, plasma, or whole bOrdered By: Eddy Cutler on 04-01-2025 GFR/1.73 sq M.predicted among non-blacks MDRD (S/P/Bld) [Vol rate/Area] 126 mL/min/{1.73_m2} >60 [facility] Comment on above: mL/min/1.73m2 CKD-EP I Creatinine Equation (2020) Hematocrit Auto (Bld) [Volum e fraction]Ordered By: Eddy Cutler on 04-01-2025 Hematocrit (Bld) [Volume fraction] 43.9 % 40-54 [facility] Hemoglobin measurementOrdere d By: Eddy Cutler on 04-01-2025 Hemoglobin (Bld) [Mass/Vol] 15.5 g/dL 13.0-16.5 [facility] Immature granulocytes/100 WB C Auto (Bld)Ordered By: Eddysarah Cutler on 04-01-2025 Immature granulocytes/100 WBC (Bld) 0.100 % 0.0-0.9 [facility] Comment on above: IG% - Immature Granu locytes (promyelocytes, myelocytes and metamyelocytes) > 1% indicates that a LEFT SHIFT is Present. Laboratory - Chemistry and C hemistry - challengeOrdered By: Eddy Cutler on 04-01-2025 AST [Catalytic activity/Vol] 125 U/L High <38 [facility] Comment on above: Hemolysis present, R esults could be affected. MCV (mean corpuscular volume ) determinationOrdered By: Eddy Cutler on 04-01-2025 MCV (RBC) [Entitic vol] 88.9 fL 80-94 [facility] Mean corpuscular hemoglobin (MCH) determinationOrdered By: Eddy Cutler on 04-01-2025 MCH (RBC) [Entitic mass] 31.4 pg 27.0-32.0 [facility] Mean corpuscular hemoglobin concentration (MCHC) determinationOrdered By: Eddy Cutler on 04-01-2025 MCHC (RBC) [Mass/Vol] 35.3 g/dL 32-36 [facility] Mean platelet volume determi nationOrdered By: Eddy Cutler on 04-01-2025 Platelet mean volume (Bld) [Entitic vol] 10.2 fL 6.2-12.0 [facility] Monocyte percentageOrdered B y: Eddy Culter on 04-01-2025 Monocytes/100 WBC (Bld) 7.5 % 0-10 [facility] Neutrophil percentageOrdered By: Eddysarah Cutler on 04-01-2025 Neutrophils/100 WBC (Bld) 58.7 % 47-70 [facility] No Panel InformationOrdered By: Eddy Cutler on 04-01-2025 Urine Buprenorphine Qualitative Negative < 200 ng/mL [facility] Urine Oxycodone Screen Negative < 100 ng/mL [facility] Nucleated red blood cell per centageOrdered By: Eddy Cutler on 04-01-2025 Nucleated RBC/100 WBC (Bld) [Ratio] 0 % 0-5 [facility] Platelet countOrdered By: Axel Cutler on 04-01-2025 Platelets (Bld) [#/Vol] 283 10*3/uL 150-450 [facility] Potassium measurement (mass/ volume)Ordered By: Eddy Cutler on 04-01-2025 Potassium (Unsp spec) [Mass/Vol] 3.8 mmol/L 3.3-5.1 [facility] Comment on above: Hemolysis present, R esults could be affected. Quantitative urine opiates m easurementOrdered By: Eddy Cutler on 04-01-2025 Opiates Ql (U) Negative < 300 ng/mL [facility] RBC Auto (Bld) [#/Vol]Ordere d By: Eddy Cutler on 04-01-2025 RBC (Bld) [#/Vol] 4.94 10*6/uL 4.6-6.2 [facility] Screening urine fentanyl marcelina surementOrdered By: Eddy Cutler on 04-01-2025 fentaNYL Screen Ql (U) Negative [facility] Serum creatinine measurement (mass/volume)Ordered By: Eddy Cutler on 04-01-2025 Creatinine [Mass/Vol] 0.76 mg/dL 0.70-1.20 [facility] Serum globulin measurementOr dered By: Eddy Cutler on 04-01-2025 Globulin (S) [Mass/Vol] 3.5 g/dL 2.2-4.2 [facility] Serum glucose measurement (m ass/volume)Ordered By: Eddy Cutler on 04-01-2025 Glucose [Mass/Vol] 139 mg/dL High 70-99 [facility] Serum or plasma alanine gomez otransferase (ALT) measurementOrdered By: Eddy Cutler on 04-01-2025 ALT [Catalytic activity/Vol] 197 U/L High <47 [facility] Serum or plasma albumin nimco urement (mass/volume)Ordered By: Eddy Flores on 04-01-2025 Albumin [Mass/Vol] 3.6 g/dL 3.5-5.0 [facility] Serum or plasma albumin/glob ulin mass ratioOrdered By: Eddy Cutler on 04-01-2025 Albumin/Globulin [Mass ratio] 1.1 {ratio} 0.9-2.4 [facility] Serum or plasma alkaline wayne sphatase measurementOrdered By: Eddy Cutler on 04-01-2025 ALP [Catalytic activity/Vol] 98 U/L 40-129 [facility] Serum or plasma calcium nimco urement (mass/volume)Ordered By: Eddy Flores on 04-01-2025 Calcium [Mass/Vol] 9.0 mg/dL 7.6-11.0 [facility] Serum or plasma ethanol nimco urement (mass/volume)Ordered By: Eddy Flores on 04-01-2025 Ethanol [Mass/Vol] mg/dL <10.1 [facility] Comment on above: This test is for med ical purposes only. The legal definition of intoxication varies according to local law. Serum or plasma urea nitroge n measurement (mass/volume)Ordered By: Eddy Cutler on 04-01-2025 Urea nitrogen [Mass/Vol] 10 mg/dL 4-19 [facility] Sodium levelOrdered By: Ganesh Cutler on 04-01-2025 Sodium [Moles/Vol] 140 mmol/L 133-145 [facility] Total proteinOrdered By: Rik Cutler on 04-01-2025 Protein [Mass/Vol] 7.1 g/dL 5.9-8.4 [facility] Urine Drug Screen (VISTA)on 04-01-2025 AMPHETAMINES Positive Normal <1000 ng/mL [facility] Comment on above: Result Comment: If c onfirmation testing is needed, a separate order will be required to send out testing to the reference laboratory. Performed By: #### L 100.0100, L505.5000, L501.9100 #### [facility] [address] [place], [place], [id number] [phone]) BARBITIURATES Negative Normal < 200 ng/mL [facility] Comment on above: Performed By: #### L 100.0100, L505.5000, L501.9100 #### [facility] [address] [place], [place], [id number] [phone] BENZODIAZIPINE Negative Normal < 200 ng/mL [facility] Comment on above: Performed By: #### L 100.0100, L505.5000, L501.9100 #### [facility] [address] [facility] [place], [place], [id number] ([phone]) BUP Ur Drug Scr Negative Normal < 200 ng/mL [facility] Comment on above: Performed By: #### L 100.0100, L505.5000, L501.9100 #### [facility] [address] [place], [address] COCAINE Negative Normal < 300 ng/mL [facility] Comment on above: Performed By: #### L 100.0100, L505.5000, L501.9100 #### [facility] [address] [place], [address] Fentanyl Negative Normal [facility] Comment on above: Performed By: #### L 100.0100, L505.5000, L501.9100 #### [facility] [address] [place], [address] METHADONE Negative Normal < 300 ng/mL [facility] Comment on above: Performed By: #### L 100.0100, L505.5000, L501.9100 #### [facility] [address] [place], [address] OPIATES Negative Normal < 300 ng/mL [facility] Comment on above: Performed By: #### L 100.0100, L505.5000, L501.9100 #### [facility] [address] [place], [address] OXYCODONE Negative Normal < 100 ng/mL [facility] Comment on above: Performed By: #### L 100.0100, L505.5000, L501.9100 #### [facility] [address] [place], [address] PCP Negative Normal < 25 ng/mL [facility] Comment on above: Performed By: #### L 100.0100, L505.5000, L501.9100 #### [facility] [address] [place], [address] THC Positive Normal < 50 ng/mL [facility] Comment on above: Result Comment: If c onfirmation testing is needed, a separate order will be required to send out testing to the reference laboratory. Performed By: #### L 100.0100, L505.5000, L501.9100 #### [facility] [address] [place], [address] Urine benzodiazepine levelOr dered By: Eddy Cutler on 04-01-2025 Benzodiazepines Ql (U) Negative < 200 ng/mL [facility] Urine cocaine levelOrdered B y: Eddy Cutler on 04-01-2025 Cocaine Ql (U) Negative < 300 ng/mL [facility] Urine xbizf-8-ewamqazptjjbcy abinol (THC) measurementOrdered By: Eddy Doris Flores on 04-01-2025 Cannabinoids Screen Ql (U) Positive < 50 ng/mL [facility] Comment on above: If confirmation test ing is needed, a separate order will be required to send out testing to the reference laboratory. Urine phencyclidine (PCP) de tectionOrdered By: Eddy Cutler on 04-01-2025 Phencyclidine Ql (U) Negative < 25 ng/mL [facility] White blood cell (WBC) count Ordered By: Eddy Cutler on 04-01-2025 WBC (Bld) [#/Vol] 7.4 10*3/uL 4.4-11.0 [facility] ECG 12-LEADon 02-11-2025 ECG 12-LEAD IMPRESSION: Sinus rhythm normal axis and intervals no old ekg available for comparison Electronically Signed On 02-11-2025 07:47:34 EDT by Errol Moreau [facility] ED Provider Noteon ED Provider Note Emergency Department Encounter [facility] EMERGENCY DEPT Patient: Marlin Ojeda : 1995 [...] 343 ms QTC Interval 438 ms P [place] 59 degrees QRS [place] 63 degrees T Wave [place] 49 degrees [place] Interval 145 ms Radiographs: No orders to display : EKG: All EKG's areinterpreted by the Emergency Department Physician in the absence of a statistical financial analyst. see their note for interpretation of EKG. [...] Board (Alcohol, Drug, Mental Health) [address] [id number] Go to As needed DISCHARGE MEDICATIONS: New Prescriptions No medications on file @[facility]([phone]:LAST:1)@ (Please note: Portions of this note were completed with a voice recognition program. Efforts were made to edit the dictations but occasionally words and phrases are mis-transcribed.) Form v2016.J.5-cn Reggie Summers PA-C Acute Care [facility] Reggie Summers PA-C 02/11/25 0207 Normal [facility] No Panel InformationOrdered By: Errol Moreau on 02-11-2025 P [place] 59 degrees [employer] Work Phone: ME Interval 145 ms [employer] Work Phone: QRS [place] 63 degrees [employer] Work Phone: QRSD Interval 99 ms [employer] [facility] Work Phone: QT Interval 343 ms [employer] Work Phone: QTC Interval 438 ms [employer] Work Phone: T Wave [place] 49 degrees [employer] Work Phone: [employer] Work Phone: No Panel Informationon 02-11 Sinus rhythm normal axis and intervals no old ekg available for comparison Electronically Signed On 02-11-2025 07:47:34 EDT by Errol Eagle DO - 02/11/2025 IMPRESSION: Sinus rhythm normal axis and intervals no old ekg available for comparison Electronically Signed On 02-11-2025 07:47:34 EDT by Errol Moreau [facility] [employer] Vital signsOrdered By: Leslie Moreau on 02-11-2025 Heart rate 98 /min bpm [employer] Work Phone: XR TOE RIGHT 2+ VIEWSon 03-2 5-2025 XR TOE RIGHT 2+ VIEWS Interpreted By: Hua Cheema, STUDY: XR TOE RIGHT 2+ VIEWS; ; 01/12/2025 6:02 pm INDICATION: Signs/Symptoms:ATTN 5TH/LITTLE TOE. COMPARISON: None. ACCESSION NUMBER(S): [id number] ORDERING CLINICIAN: JACINTO SAMUELS FINDINGS: Transversely oriented fracture of the 5th distal phalanx. Soft tissue swelling. IMPRESSION: Transversely oriented fracture of the 5th distal phalanx. MACRO: None Signed by: Hua Cheema 01/12/2025 6:43 PM Dictation workstation: [address] XR Toes - right 2 Viewson Transversely oriented fracture of the 5th distal phalanx. MACRO: None Signed by: Hua Cheema 01/12/2025 6:43 PM Dictation workstation: [address] MMODAL Interpreted By: Hua Cheema, STUDY: XR TOE RIGHT 2+ VIEWS; ; 01/12/2025 6:02 pm INDICATION: Signs/Symptoms:ATTN 5TH/LITTLE TOE. COMPARISON: None. ACCESSION NUMBER(S): [id number] ORDERING CLINICIAN: JACINTO SAMUELS FINDINGS: Transversely oriented fracture of the 5th distal phalanx. Soft tissue swelling. [facility] [employer] Hua Cheema MD - 01/12/2025 Interpreted By: Hua Cheema, STUDY: XR TOE RIGHT 2+ VIEWS; ; 01/12/2025 6:02 pm INDICATION: Signs/Symptoms:ATTN 5TH/LITTLE TOE. COMPARISON: None. ACCESSION NUMBER(S): [id number] ORDERING CLINICIAN: JACINTO SAMUELS FINDINGS: Transversely oriented fracture of the 5th distal phalanx. Soft tissue swelling. IMPRESSION: Transversely oriented fracture of the 5th distal phalanx. MACRO: None Signed by: Hua Cheema 01/12/2025 6:43 PM Dictation workstation: [address] Work Phone: Radiology Study observation (narrative) [facility] Work Phone: XR Toes - right 2 ViewsOrder ed By: Hua Cheema on 01-12-2025 [facility] Work Phone: C. trachomatis+N. gonorrhoea e DNA [place]+probe Ql (Unsp spec)on 12-07-2024 C. trachomatis rRNA [place]+probe Ql (Unsp spec) Not detected Normal Not detected [facility] Comment on above: Order Comment: Speci men Type: URINE SPECIMEN Ordering Facility: [facility] Address: [address] [place] [address] Performed By: #### 3 6902-5 #### [facility] CLIA [id number] [address] [place] [address] [place] N. gonorrhoeae rRNA BR[place]N+probe Ql (Unsp spec) Not detected Normal Not detected [facility] Comment on above: Order Comment: Speci men Type: URINE SPECIMEN Ordering Facility: [facility] Address: [address] [place] [address] Performed By: #### 3 6902-5 #### [facility] CLIA [id number] [address] [place] [address] [place] CNOVon 12-07-2024 CNOV Office Visit (UCWSTR) MARLIN OJEDA ([id number]) 1995 M T Date Time Provider Department 12/07/24 1:00 PM FLORI VELEZ [facility] During your visit today, we recorded the following information about you: Temperature Pulse Respiration Blood pressure 98.3 degrees 110/minute 16/minute 124/70 Weight 130.4 kg Flori Velez APRN.CNP 12/07/2024 1:45 PM Signed This note was [...] - METRONIDAZOLE 500 MG TABLET Flori Velez APRN.DAY CAMP COUNSELOR Allergies As of Date: 12/07/2024 Noted Allergy Reaction ROCEPHIN (CEFTRIAXONE SODIUM) 11/19/2012 4 - Hives Date Reviewed: 12/07/2024 Reviewed by: Flori Velez APRN.DAY CAMP COUNSELOR - Fully Assessed Reason for Visit: STD [102] Cmt: herpes, trich and chlamydia exposure Primary Visit Diagnosis:STD exposure [Z20.2] Order(s):GONORRHEA/C HLAMYDIA NAAT [SQGCCT] Order #: [id number]. #:[id number] TRICHOMONAS VAGINALIS NAAT [SQTRVAMP] Order #: [id number] [facility] UA DIP, URINE (POC) [0510438] Order #: [id number]. #:[id number] TRICHOMONAS VAGINALIS NAAT [SQTRVAMP] Order #: [id number]. #:[id number] doxycycline monohydrate (MONODOX) 100 mg capsuleTake 1 [...] Status:Closed by FLORI VELEZ on 12/07/24 Normal [facility] TRICHOMONAS VAGINALIS NAATon 12-07-2024 T. vaginalis DNA [place]+probe Ql (Unsp spec) Not detected Normal Not detected [facility] Comment on above: Order Comment: Speci men Type: URINE SPECIMEN Ordering Facility: [facility] Address: [address] [place] [address] Performed By: #### T RVAMP #### [facility] CLIA [id number] [address] [place] [id number] [place] [address] [place] UA DIP, URINE (POC)on 2024 BILIRUBIN UA (POCT) Negative Negative [facility] CLARITY [facility] (POCT) [facility] COLOR UA (POCT) Dark yellow [facility] GLUCOSE UA (POCT) Negative Negative mg/dL [facility] Hemoglobin Ql (U) Negative Negative [facility] KETONE UA (POCT) Negative Negative mg/dL [facility] LEUKOCYTES UA (POCT) Negative Negative [facility] NITRITE UA (POCT) Negative Negative [facility] PH UA (POCT) 5.5 4.5 - 8.0 [facility] Protein Ql (U) Negative Negative mg/dL [facility] SPECIFIC GRAVITY UA (POCT) >=1.030 1.005 - 1.030 [facility] UROBILINOGEN UA (POCT) 0.2 Danya l E.U./dL [facility] Location:[address], [place], [place], [address] [place] [address] POINT OF CARE [facility] No Panel Informationon 01-22 No evidence for acute injury Signed by Dennis Narayanan MD TELERADIOLOGY STUDY: Right ankle, and tibia and fibula radiographs; 01/23/2024 at 2:46 PM. INDICATION: Injury. COMPARISON: None available. ACCESSION NUMBER(S): [id number], [id number] ORDERING CLINICIAN: ANGELINE REEVES TECHNIQUE: Three views of the right ankle, [...] INDICATION: Injury. COMPARISON: None available. ACCESSION NUMBER(S): [id number], [id number] ORDERING CLINICIAN: ANGELINE REEVES TECHNIQUE: Three views of the right ankle, [...]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 is protected by the Federal Confidentiality of Alcohol and Drug Abuse Patient Records regulations: The Federal rules restrict any use of the information to criminally investigate or prosecute any alcohol or drug abuse patient.[facility] Scheduled Active and Recently Administ ered Medications (unrecognized section and content) Medication Order 01/10/2025 01/11/2025 01/12/2025 [id number] (Neosporin) ointment foil packet (COMPLETED) Topical, Once, On Sat01/12/25 at 1915, For 1 dose 1917 (Given - Provid er: Polina Pritchard RN - Comment: only one application - one packet) Goals (unrecognized section and content) Goals may be documented in a n alternate sectionGoals may be documented in an alternate section FOR RECORDS PERTAINING TO PATIENTS [...] BE BASED ON THE PRIMARY CLINICAL RECORDS. [employer] [facility]. provides no warranty or guarantee of the accuracy or completeness of information in this document.
== END 2025-07-16 18:00 | disposition left against medical advice (07) ==
LOC: ED 19:24
DX: R05.9 Cough, unspecified (principal); Z53.21 Procedure and treatment not carried out due to patient leaving prior to being seen by health care provider